=== PATIENT | female | born 2000 | race Caucasian/White ===

== ENCOUNTER 2018-02-23 18:05 | Emergency (ER) | payer BC ==
[2018-02-23 20:26] VITALS: BP 97/60
--- NOTE | 2018-02-23 21:10 | UC ---
FLU HPI - HPI Summary HPI Summary: 17 y/o female presents to the urgent care c/o common cold for the past 2 weeks. However 3 days ago, Thursday02/21/18 she developed body aches, SARAVIA, chills. She took Dayquill PO to alleviate symptoms on an empty stomach and she had 1 episode on N/V. She states nasal congestion is clear. SARAVIA and Sore throat today. Pain w/ swallowing is 6/10. Pt denies SOB, rashes, chest pain, abdominal pain, N/V/D or cough. Pt is UTD w/ all vaccines for her age. She states her friends at school have similar symptoms. - History of Current Complaint Chief Complaint: UCRespiratory Stated Complaint: FLU-LIKE SYMPTOMS Time Seen by Provider: 02/23/18 21:03 Hx Obtained From: Patient Hx Last Menstrual Period: 2 weeks ago ?: No Onset/Duration: Gradual Onset, Lasting Weeks - 2 weeks, Still Present, Worse Since - 3 days ago Severity Currently: Mild Severity Initially: Moderate Pain Intensity: 6 - sore throat today Pain Scale Used: 0-10 Numeric Associated Signs & Symptoms: Positive: Myalgia, Cough, Sore Throat, Nasal Congestion, Headache - Allergy/Home Medications Allergies/Adverse Reactions: Allergies Allergy/AdvReac Type Severity Reaction Status Date / Time No Known Allergies Allergy Verified 02/23/18 20:18 Home Medications: Home Medications NK [No Home Medications Reported] 02/23/18 [History Confirmed 02/23/18] PMH/Surg Hx/FS Hx/Imm Hx Previously Healthy: Yes - Pt deneis PMHX - Surgical History Surgical History: None - Family History Known Family History: Positive: None - Pt denies PMHX - Social History Occupation: Student Lives: With Family Alcohol Use: None Substance Use Type: None Smoking Status (MU): Never Smoked Tobacco - Immunization History Vaccination Up to Date: Yes Review of Systems Constitutional: Chills, Fatigue, Other - body aches Skin: Negative Eyes: Negative ENT: Sore Throat, Nasal Discharge, Sinus Congestion Cardiovascular: Negative Gastrointestinal: Negative Genitourinary: Negative Motor: Negative Neurovascular: Negative Musculoskeletal: Arthralgia, Myalgia Neurological: Headache Psychological: Negative Is Patient Immunocompromised?: No All Other Systems Reviewed And Are Negative: Yes Physical Exam - Summary Physical Exam Summary: VITAL SIGNS: Reviewed. GENERAL: Patient is a well developed and nourished female adolescent who is sitting comfortable in the examining table. Patient is not in any acute respiratory distress. HEAD AND FACE: No signs of trauma. No ecchymosis, hematomas or skull depressions. No sinus tenderness. EYES: PERRLA, EOMI x 2, No injected conjunctiva, no nystagmus. No photophobia. EARS: Hearing grossly intact. Ear canals and tympanic membranes are within normal limits. Nose: edematous and erythematous nasal mucosa w/ clear nasal discharge. MOUTH: Positive no erythema, no tonsillar enlargement. Uvula in midline. NECK: Supple, trachea is midline, Positive anterior cervical lymphadenopathy, no JVD, no carotid bruit, no c-spine tenderness, neck with full ROM. No meningeal signs, no Kernig's or brudzinskis signs. CHEST: Symmetric, no tenderness at palpation LUNGS: Clear to auscultation bilaterally. No wheezing or crackles. CVS: Regular rate and rhythm, S1 and S2 present, no murmurs or gallops appreciated. ABDOMEN: Soft, non-tender. No signs of distention. No rebound no guarding, and no masses palpated. Bowel sounds are normal. EXTREMITIES: FROM in all major joints, no edema, no cyanosis or clubbing. NEURO: Alert and oriented x 3. No acute neurological deficits. Speech is normal and follows commands. SKIN: Dry and warm Triage Information Reviewed: Yes Vital Signs: Initial Vital Signs Temp 98.5 F 02/23/18 20:20 Pulse 92 02/23/18 20:20 Resp 18 02/23/18 20:20 BP 97/60 02/23/18 20:20 Pulse Ox 97 02/23/18 20:20 Flu Course/Dx - Course Course Of Treatment: 17 y/o female presents to the urgent care c/o common cold for the past 2 weeks. However 3 days ago, Thursday02/21/18 she developed body aches, SARAVIA, chills. She took Dayquill PO to alleviate symptoms on an empty stomach and she had 1 episode on N/V. She states nasal congestion is clear. SARAVIA and Sore throat today. Pain w/ swallowing is 6/10. Pt denies SOB, rashes, chest pain, abdominal pain, N/V/D or cough. Pt is UTD w/ all vaccines for her age. She states her friends at school have similar symptoms. Hx obtained. Pt w/ probably viral syndorme on examination. Rapid strep ordered, result: negative.Influenza A&B ordered: result:negativve. Pt Rx ibuprofen PO to alleviates symptoms. Advised on hand washing and wear a mask to avoid spreading. Pt advised to rest, increase fluid intake, eat well and avoid strenuous exercise. If symptoms do not improve or worsen advised to return to the urgent care or f/u with her PCP for further evaluation and treatment. Pt understood and agreed with plan of care. - Differential Dx/Diagnosis Differential Diagnosis/HQI/PQRI: Bronchitis, Influenza, Pneumonia, Upper Respiratory Infection Provider Diagnoses: 1- Viral syndrome Discharge - Sign-Out/Discharge Documenting (check all that apply): Patient Departure - D/C home All imaging exams completed and their final reports reviewed: No Studies - Discharge Plan Condition: Stable Disposition: HOME Patient Education Materials: Viral Syndrome (ED) Referrals: [facility] [place] [facility] [Outside] - 3 Days Additional Instructions: 1-Please take ibuprofen PO q6-8hrs prn as instructed after meals to alleviate pain and swelling. Increase fluid intake, eat well, rest and avoid strenuous exercise 2-If symptoms do not improve or worsen please return to the urgent care or f/u with your PCP for further evaluation and treatment. - Billing Disposition and Condition Condition: STABLE Disposition: Home
== END 2018-02-23 21:40 | disposition home or self-care (01) ==
LOC: UCEAST 18:05
DX: B34.9 Viral infection, unspecified (principal)
CPT/HCPCS: 87651; 99201; G0463